=== PATIENT | male | born 1985 | race Caucasian/White ===

== ENCOUNTER 2018-09-15 19:59 | Emergency (ER) | payer SELFPAY ==
[~2018-09-15] VITALS: Ht 170.2 cm; Wt 66.2 kg
[2018-09-15 20:14] VITALS: BP 178/81; PULSE 83; RESP 18; Ht 170.2 cm; Wt 66.2 kg
[2018-09-15] MEDS ORDERED: KETOROLAC 30 MG INJ IM STA (21:48)
[2018-09-15] MEDS ORDERED: OXYC-279 PO (21:50)
[2018-09-15] MEDS ORDERED: IBUP-1542 PO (21:50)
[2018-09-15] MEDS ORDERED: OXYCODONE/ACETAMINOPHEN (5/325) TAB PO ONE (22:00)
--- NOTE | 2018-09-15 22:58 | ERD ---
ER Documentation Chief Complaint Chief Complaint pain left upper back/shoulder x 1 week, denies cp. HPI 33-year-old man complaining of posterior left shoulder pain x1 week and difficulty Abducting the left upper extremity due to pain. Patient states symptoms began after lifting heavy boxes last week. He denies neck pain, no paresis or paresthesias, no chest pain or shortness of breath, no falls or direct trauma to the shoulder or upper extremity. ROS All systems reviewed and are negative except as per history of present illness. Medications Home Meds Active Scripts Oxycodone HCl/Acetaminophen (Percocet 5-325 mg Tablet) 1 Each Tablet, 1 EACH PO TID PRN for SEVERE PAIN LEVEL 7-10, #9 TAB Prov:SILVIANO FORD MD 09/15/18 Ibuprofen* (Motrin*) 600 Mg Tab, 600 MG PO Q8 PRN for PAIN AND/OR INFLAMMATION, #30 TAB Prov:SILVIANO FORD MD 09/15/18 Allergies Allergies: Coded Allergies: No Known Drug Allergies (Verified Allergy, Unknown, 09/15/18) Physical Exam Vitals Vital Signs Date Temp Pulse Resp B/P (MAP) Pulse Ox O2 O2 Flow FiO2 Time Delivery Rate 09/15/18 97.8 83 18 178/81 100 20:14 (113) Physical Exam GENERAL: Well-developed, well-nourished, well-hydrated, in no apparent distress, looks nontoxic in appearance NEURO: Alert and oriented 3, cranial nerves II through XII intact bilaterally, pupils equal round reactive to light, no focal deficits or facial asymmetry, sensation intact distally Strength 5/5 in upper and lower extremities bilaterally CARDIAC: Regular rate and rhythm, no murmurs rubs or gallops LUNGS: Clear bilaterally no wheezing crackles or stridor SKIN: Warm and dry to touch, no abrasions, contusions, or hematomas, no lacerations, no ecchymosis, no target lesions, and without ulcers EXTREMITIES: No clubbing cyanosis or edema, distal pulses equal and bilateral, mild reproducible soft tissue tenderness over the left posterior shoulder PSYCH: Normal affect without agitation or irritability Results 24 hrs Current Medications Medications Dose Sig/Shreyas Start Time Status Last (Trade) Ordered Route PRN Stop Time Admin Dose Reason Admin Ketorolac 30 mg ONCE STAT 09/15/18 DC Tromethamine IM 21:48 (Toradol) 09/15/18 21:50 Oxycodone/ 1 tab ONCE ONCE 09/15/18 DC Acetaminophen PO 22:00 (Percocet 09/15/18 22:01 (5/ 325)) Procedures/MDM I administered Toradol 30 mg IM x1 and Percocet 1 tablet p.o. Left upper extremity was placed in a shoulder immobilizer for comfort and supportive measures. I did tell him if symptoms continue over 4 weeks he may require MR imaging of the left upper extremity to rule out rotator cuff tear. Splint Assessment: Neurovascularly intact post splint placement with good fit. Patient feels much better at this time, and vital signs are normal, symptoms have improved. I did give strict instructions to return to the ED if symptoms continue or worsen, patient will otherwise follow-up with primary care physician. Patient understood instructions and agreed to plan. Disclaimer: Inadvertent spelling and grammatical errors are likely due to EHR/dictation software use and do not reflect on the overall quality of patient care. Also, please note that the electronic time recorded on this note does not necessarily reflect the actual time of the patient encounter. Departure Diagnosis: Primary Impression: Shoulder sprain Encounter type: initial encounter Shoulder sprain type: unspecified sprain Laterality: left Qualified Codes: S43.402A - Unspecified sprain of left shoulder joint, initial encounter Condition: Good Patient Instructions: Rotator Cuff Tear SILVIANO FORD MD Sep 15, 2018 22:58
== END 2018-09-15 23:45 | disposition home or self-care (01) ==
LOC: FTE 19:59 → E/R 23:45
DX: S43.402A Unspecified sprain of left shoulder joint, initial encounter (principal); X50.0XXA Overexertion from strenuous movement or load, initial encounter; Y92.9 Unspecified place or not applicable
CPT/HCPCS: 29105; 99283; J1885